=== PATIENT | male | born 1945 | race Caucasian/White ===

== ENCOUNTER 2016-12-08 16:39 | Emergency (ER) | payer OTHER ==
[~2016-12-08] VITALS: Ht 177.8 cm; Wt 77.1 kg
--- NOTE | 2016-12-08 16:57 | NUR ---
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
[2016-12-08] MEDS ORDERED: ONDA4TAB8 SL (17:00)
[2016-12-08] MEDS ORDERED: FINA5TAB11 PO (17:00)
[2016-12-08] MEDS ORDERED: TAMS0.4C34 PO (17:00)
[2016-12-08] MEDS ORDERED: HYDROCORTIZONE TP (17:00)
[2016-12-08] MEDS ORDERED: CLOT15CR63 TP (17:00)
[2016-12-08] MEDS ORDERED: ACET-2154 PO (17:00)
[2016-12-08] MEDS ORDERED: DONE10TA44 PO (17:00)
[2016-12-08] MEDS ORDERED: ASPI-605 PO (17:00)
[2016-12-08] MEDS ORDERED: ATOR80TA PO (17:00)
[2016-12-08] MEDS ORDERED: METF500T4 PO (17:00)
[2016-12-08] MEDS ORDERED: CYAN10009 PO (17:00)
[2016-12-08] MEDS ORDERED: CALC-764 PO (17:00)
--- NOTE | 2016-12-08 17:15 | NUR ---
Discharge instructions given to assisted living staff Angy by phone. Patient discharged to assisted living home in stable conditon. Written and verbal after care instructions given to Giselle. [facility] staff verbalizes understanding of instructions. [facility] ambulance ETA= 1830 (AGlobal [place]) Addendum: 12/08/16 at 1754 by [facility] ambulance ETA= 1745 keegan Garrison ( [facility] dispatcher)
--- NOTE | 2016-12-08 17:52 | NUR ---
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
--- NOTE | 2016-12-08 18:30 | NUR ---
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
--- NOTE | 2016-12-08 18:44 | NUR ---
[facility] ambulance is now here. Hands off report given to EMT's.
== END 2016-12-08 18:46 | disposition home or self-care (01) ==
LOC: ER 16:39
DX: B37.2 Candidiasis of skin and nail (principal); F03.90 Unspecified dementia, unspecified severity, without behavioral disturbance, psychotic disturbance, mood disturbance, and anxiety
CPT/HCPCS: 99283; A4663